=== PATIENT | female | born 1980 | race Hispanic/Latino ===

== ENCOUNTER 2017-04-10 13:38 | Inpatient (IN) | payer SELFPAY ==
[2017-04-10] MEDS ORDERED: SODIUM CHLORIDE 0.9% 1000ML 1,000 ML IVS ONE (13:50)
[2017-04-10] MEDS ORDERED: ONDANSETRON INJ 4 MG/2 ML VIAL IV ONE (13:55)
[2017-04-10] MEDS ORDERED: PANTOPRAZOLE SODIUM IV 40 MG VIAL IV ONE (13:56)
[2017-04-10] MEDS ORDERED: SODIUM CHLORIDE 0.9% 10 ML VIAL ONE (13:58)
[2017-04-10] MEDS ORDERED: SUCRALFATE 1 GM/10 ML 1 GM UD PO ONE (14:42)
[2017-04-10] MEDS ORDERED: ALUMINUM & MAGNESIUM HYDROXIDE 30 ML UD PO ONE (14:42)
--- NOTE | 2017-04-10 14:55 | RAD ---
EXAM DESCRIPTION: Abdomen Series CLINICAL HISTORY: ams, abd pain COMPARISON: None. FINDINGS: AP supine and upright views of the abdomen show a nonspecific, nonobstructive bowel gas pattern with no evidence for free intraperitoneal air. No air-filled dilated loops of small bowel are seen. No significant air-fluid levels are identified. No obvious organomegaly is seen. No abnormal calcifications are seen in the expected location of the renal collecting systems. Single view of the chest shows cardiac silhouette and pulmonary vasculature to be within normal limits. Lungs are normally aerated and clear. Sclerotic changes on the more iliac side of the SI joints seen bilaterally that could represent sacroiliitis. IMPRESSION: Nonspecific abdominal series Electronically signed by: Owen Adames MD 04/10/2017 2:54 PM [employer]ING MACHINE [employer]
--- NOTE | 2017-04-10 16:30 | CT ---
EXAM DESCRIPTION: Abdomen/Pelvis w/Contrast CLINICAL HISTORY: upper abd pain, nv 5 days COMPARISON: None Available TECHNIQUE: CT of the abdomen and Pelvis was performed without IV contrast. This exam was performed according to our departmental dose-optimization program, which includes automated exposure control, adjustment of the mA and/or kV according to patient size and/or use of iterative reconstruction technique. FINDINGS: There is a 3 cm for a calcified gallstone in the gallbladder neck with subtle pericholecystic collection, fluid or wall thickening. The gallbladder is dilated, measuring just over 4 cm diameter. No intra or extrahepatic biliary duct dilation is seen. There is no evidence of pancreatitis. A round 1.9 cm predominantly low density lesion is noted in the body of the pancreas and likely contains a tiny calcification. The spleen, adrenals and kidneys are unremarkable. No dilated small bowel loops. No adenopathy, ascites or pneumoperitoneum. No bladder wall thickening. The uterus and ovaries are unremarkable for patient's age. No colonic wall thickening or pericolonic inflammation. Colonic diverticulosis is noted. The appendix is normal. No lung base abnormality. No acute bone lesion. IMPRESSION: Cholelithiasis and cholecystitis without biliary duct dilation or pancreatitis. Surgical consultation is recommended. 1.9 cm low-density lesion in the pancreatic body which may contain a tiny calcification. No definite enhancement is seen, but this is a nonspecific finding. If the patient has history of prior pancreatitis, pancreatic pseudocyst should be considered. Given patient's age, neoplasm is considered less likely but not completely excluded. Pancreatic protocol CT with pre and multiphase postcontrast images may be helpful for further evaluation. Findings and recommendations were reported by telephone to Dr. Mejia by me at the time of this dictation. Electronically signed by: Don Gracia MD 04/10/2017 4:29 PM [employer]
[2017-04-10] MEDS ORDERED: cefOXitin SODIUM 2 GM in SODIUM CHL 0.9% 50ML MIN-BAG+ 50 ML IVPB ONE (16:48)
[2017-04-10] MEDS ORDERED: MORPHINE SULFATE INJ 10 MG/ML VIAL IV ONE (16:52)
--- NOTE | 2017-04-10 16:55 | ED.PDOC ---
History of Present Illness - General Chief Complaint: Abdominal Pain Stated Complaint: EPIGASTRIC PAIN AND WEAKNESS Time Seen by Provider: 04/10/17 13:44 Source: patient Exam Limitations: no limitations - History of Present Illness Initial Comments: the patient is a 36-year-old female presenting to the emergency room secondary to getting weak and almost passing out when she went to the clinic this morning. She had gone to the clinic for reevaluation of her recurring abdominal pain with associated nausea and vomiting. The patient was seen for 5 days ago at an outside clinic and had labs done. She does not know the results of those labs. The patient has not thrown up any blood. No diarrhea or constipation. No fever. She has not been wanting to eat or drink. She has diffuse upper abdominal discomfort. She thinks that she has had long-standing reflux issues. She has taken omeprazole intermittently. The patient was mildly disoriented upon arrival here however this was after she almost passed out the pain. The patient is feeling much better after a liter of IV fluids. Abdominal pain and nausea still coming in waves. Timing/Duration: 1 week Severity: moderate Improving Factors: nothing Worsening Factors: eating Associated Symptoms: loss of appetite, malaise, nausea/vomiting, weakness Allergies/Adverse Reactions: Allergies NO KNOWN ALLERGY Allergy (Verified 04/10/17 13:58) Review of Systems - Review of Systems Constitutional: States: diaphoresis, malaise, weakness EENTM: States: no symptoms reported Respiratory: States: no symptoms reported Cardiology: States: no symptoms reported Gastrointestinal/Abdominal: States: abdominal pain, nausea, vomiting. Denies: constipation, diarrhea Genitourinary: States: no symptoms reported Musculoskeletal: States: no symptoms reported Skin: States: no symptoms reported Neurological: States: no symptoms reported Endocrine: States: no symptoms reported All other Systems: No Change from Baseline Past Medical History (General) - Patient Medical History Hx Diabetes: No Surgical History: no surgical history - Vaccination History Immunizations Up to Date: No - Social History Hx Tobacco Use: No Feels Threatened In Home Enviroment: No Feels Threatened In a Relationship: No - Female History Patient is a Female of Child Bearing Age (10 -59 yrs old): No - Triage Comment ED Triage Comment: PT PORTRAYS THAT SHE IS UNABLE TO RESPOND BUT WHEN PROMPTED PT IS ABLE TO ANSWER ALL QUESTIONS AND IS AWAKE AT THIS TIME WITH NO SIGNS OF DISTRESS OR DISCOMFORT Family Medical History - Family History Mother Family History: No Known Physical Exam - Physical Exam General Appearance: Alert, Comfortable, No apparent distress Eye Exam: bilateral normal Ears, Nose, Throat: hearing grossly normal, normal ENT inspection, normal pharynx Neck: full range of motion, supple Respiratory: lungs clear, normal breath sounds, no respiratory distress, no accessory muscle use Cardiovascular/Chest: normal peripheral pulses, regular rate, rhythm, no edema Peripheral Pulses: radial,right: 2+, radial,left: 2+, dorsalis pedis,right: 2+, dorsalis pedis,left: 2+ Gastrointestinal/Abdominal: other - epigastric to right upper quadrant discomfort palpation. No definite palpable mass but patient does have some guarding. 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, no motor/sensory deficits, oriented x 3, other - nitially drowsy but better after she rests and received some IV fluids Skin Exam: normal color Comments: Vital Signs - 24 hr 04/10/17 04/10/17 04/10/17 13:50 14:46 15:01 Temperature 98.9 F Pulse Rate [ 75 64 85 Right Brachial] Respiratory 16 16 16 Rate Blood Pressure 138/84 156/66 156/66 [Right Arm] O2 Sat by Pulse 100 100 98 Oximetry 04/10/17 16:19 Temperature Pulse Rate [ 76 Right Brachial] Respiratory 15 Rate Blood Pressure 154/86 [Right Arm] O2 Sat by Pulse 100 Oximetry Progress - Progress Progress: 04/10/17 16:55 the patient is a 36-year-old female presenting to the emergency room with what appears to be cholelithiasis with associated acute cholecystitis, based upon CT scan. laboratory work is reassuring otherwise at this point. The patient is being placed on cefoxitin for now. She'll be made nothing by mouth. She is receiving IV fluids for mild to moderate dehydration. She will receive anti-medics and pain medications as necessary. The patient will be admitted for further management. - Results/Orders Results/Orders: Vital Signs - 8 hr 04/10/17 04/10/17 04/10/17 13:50 14:46 15:01 Temperature 98.9 F Pulse Rate [ 75 64 85 Right Brachial] Respiratory 16 16 16 Rate Blood Pressure 138/84 156/66 156/66 [Right Arm] O2 Sat by Pulse 100 100 98 Oximetry 04/10/17 16:19 Temperature Pulse Rate [ 76 Right Brachial] Respiratory 15 Rate Blood Pressure 154/86 [Right Arm] O2 Sat by Pulse 100 Oximetry 04/10/17 13:44 Telemetry .CONTINUOUS 04/10/17 13:45 EKG STAT 04/10/17 14:14 BLOOD CULTURE Stat 04/10/17 15:45 Hold Metformin x 48Hrs [id number] 04/10/17 16:48 cefOXitin SODIUM [Mefoxin] 2 gm Sodium Chl 0.9% 50Ml Min-Bag+ [NS 50ml MINI- BAG+] 50 ml IVPB ONCE 04/11/17 13:45 EKG STAT Laboratory Results - last 24 hr 04/10/17 04/10/17 04/10/17 13:45 13:54 14:14 WBC RBC Hgb Hct MCV MCH MCHC RDW Plt Count MPV Absolute Neuts (auto) Absolute Lymphs (auto) Absolute Monos (auto) Absolute Eos (auto) Absolute Basos (auto) Neutrophils % Lymphocytes % Monocytes % Eosinophils % Basophils % Sodium 134 L Potassium 3.5 L Chloride 102 Carbon Dioxide 22 Anion Gap 13.5 BUN 7 Creatinine 0.52 L BUN/Creatinine Ratio 13.5 POC Glucose 102 Random Glucose 102 Serum Osmolality 266.4 L Lactic Acid Calcium 9.7 Magnesium 1.7 L Total Bilirubin 0.8 AST 18 ALT 23 Alkaline Phosphatase 89 Creatine Kinase 44 CK-MB (CK-2) 0.6 CK-MB (CK-2) % Not Reportable Troponin I < 0.02 B-Natriuretic Peptide 9.1 Serum Total Protein 8.6 H Albumin 4.2 Globulin 4.4 H Albumin/Globulin Ratio 1.0 L Amylase 88 Lipase 46 TSH 2.11 Serum HCG, Qual Urine Color Urine Appearance Urine pH Ur Specific Kamiah Urine Protein Urine Glucose (UA) Urine Ketones Urine Blood Urine Nitrite Urine Bilirubin Urine Urobilinogen Ur Leukocyte Esterase Urine RBC Urine WBC Ur Epithelial Cells Urine Bacteria Urine Opiates Screen Negative Urine Barbiturates Negative Ur Phencyclidine Scrn Negative U Amphetamin/Meth Scrn Negative U Benzodiazepines Scrn Negative U Cocaine Metab Screen Negative U Cannabinoids Screen Negative 04/10/17 04/10/17 04/10/17 14:14 14:14 14:14 WBC 9.3 RBC 5.00 Hgb 14.5 Hct 42.0 MCV 84.0 MCH 29.0 MCHC 34.6 RDW 13.2 Plt Count 196 MPV 10.8 H Absolute Neuts (auto) 6.80 Absolute Lymphs (auto) 1.60 Absolute Monos (auto) 0.70 Absolute Eos (auto) 0.10 Absolute Basos (auto) 0.10 Neutrophils % 72.8 Lymphocytes % 17.7 L Monocytes % 7.9 Eosinophils % 0.6 L Basophils % 1.0 Sodium Potassium Chloride Carbon Dioxide Anion Gap BUN Creatinine BUN/Creatinine Ratio POC Glucose Random Glucose Serum Osmolality Lactic Acid 1.3 Calcium Magnesium Total Bilirubin AST ALT Alkaline Phosphatase Creatine Kinase CK-MB (CK-2) CK-MB (CK-2) % Troponin I B-Natriuretic Peptide Serum Total Protein Albumin Globulin Albumin/Globulin Ratio Amylase Lipase TSH Serum HCG, Qual Negative Urine Color Urine Appearance Urine pH Ur Specific Kam[place] Urine Protein Urine Glucose (UA) Urine Ketones Urine Blood Urine Nitrite Urine Bilirubin Urine Urobilinogen Ur Leukocyte Esterase Urine RBC Urine WBC Ur Epithelial Cells Urine Bacteria Urine Opiates Screen Urine Barbiturates Ur Phencyclidine Scrn U Amphetamin/Meth Scrn U Benzodiazepines Scrn U Cocaine Metab Screen U Cannabinoids Screen 04/10/17 15:00 WBC RBC Hgb Hct MCV MCH MCHC RDW Plt Count MPV Absolute Neuts (auto) Absolute Lymphs (auto) Absolute Monos (auto) Absolute Eos (auto) Absolute Basos (auto) Neutrophils % Lymphocytes % Monocytes % Eosinophils % Basophils % Sodium Potassium Chloride Carbon Dioxide Anion Gap BUN Creatinine BUN/Creatinine Ratio POC Glucose Random Glucose Serum Osmolality Lactic Acid Calcium Magnesium Total Bilirubin AST ALT Alkaline Phosphatase Creatine Kinase CK-MB (CK-2) CK-MB (CK-2) % Troponin I B-Natriuretic Peptide Serum Total Protein Albumin Globulin Albumin/Globulin Ratio Amylase Lipase TSH Serum HCG, Qual Urine Color Yellow Urine Appearance Clear Urine pH 8.0 H Ur Specific Kamiah 1.015 Urine Protein Negative Urine Glucose (UA) Negative Urine Ketones 15 H Urine Blood Large H Urine Nitrite Negative Urine Bilirubin Negative Urine Urobilinogen 0.2 Ur Leukocyte Esterase Negative Urine RBC Tntc H Urine WBC 0-1 Ur Epithelial Cells 3-5 Urine Bacteria 1+ Urine Opiates Screen Urine Barbiturates Ur Phencyclidine Scrn U Amphetamin/Meth Scrn U Benzodiazepines Scrn U Cocaine Metab Screen U Cannabinoids Screen CT scan of abdomen and pelvis shows acute cholecystitis with a 3 cm gallbladder stone at the gallbladder outlet. There is also a 1.9 cm pancreatic lesion with a central calcification. This does not appear acute. Departure - Departure Clinical Impression: Acute calculous cholecystitis Disposition: Admit Patient Decision To Admit - Decistion To Admit Decision to Admit Reason: Medical Nature Decision to Admit Date: 04/10/17 Decision to Admit Time: 16:58
[2017-04-10] MEDS ORDERED: cefOXitin SODIUM 2 GM INJ IVPB ONE (16:56)
[2017-04-10] MEDS ORDERED: SODIUM CHL 0.9% 50ML MIN-BAG+ 50 ML IVPB ONE (16:57)
--- NOTE | 2017-04-10 17:02 | HP ---
CHIEF COMPLAINT: Abdominal pain. HISTORY OF PRESENT ILLNESS: The patient is a 36 year-old female who was seen in the Emergency Room for a 1 week history of right upper quadrant abdominal pain associated with eating fatty food especially. There is no history of hepatitis or jaundice. There has been nausea and vomiting but no fever or chills. The patient was seen in some clinic 5 days ago. She is uncertain of the results of that testing. The patient has basically been able to hold down fluids and so became weak, and presented today. PAST MEDICAL HISTORY: Negative for surgical or hospitalizations. PAST SURGICAL HISTORY: Negative for surgical or hospitalizations. CURRENT MEDICATIONS: No medications at time of admission. ALLERGIES: NO KNOWN DRUG ALLERGIES. FAMILY HISTORY: Positive for diabetes. No history of anesthesia complications. SOCIAL HISTORY: The patient is . She is a housewife. She does not use tobacco or alcohol. REVIEW OF SYSTEMS: There has been no weight loss. As stated, no history of hepatitis or jaundice. Denies urinary tract symptoms, shortness of breath, chest pain or productive cough. PHYSICAL EXAMINATION: VITAL SIGNS: She is currently afebrile but her blood pressure is elevated at approximately 160/110, pulse rate is in the 60s, respiratory rate 18. GENERAL: The patient is sedated and in mild distress. HEENT: Sclera are nonicteric. Mucous membranes are moist. NECK: Without adenopathy. BACK: Without CVA tenderness. CHEST: She has equal breath sounds bilaterally. CARDIOVASCULAR: Regular rate and rhythm. ABDOMEN: Soft. There is tenderness in the right upper quadrant without discrete mass or organomegaly. There is some mild guarding. PELVIC AND RECTAL: Examinations are deferred. EXTREMITIES: Without clubbing, cyanosis or edema. LABORATORY: Today, white count 9.3 with 72% neutrophils, hemoglobin 14.5, 196, 000 platelets. Chemistries reveal normal liver function test. Normal amylase and lipase. Potassium was mildly low at 3.5, creatinine 0.52. Urinalysis revealed too numerous to count red cells and 1+ urine bacteria, large urine blood, urine ketones, specific gravity of 1.015. Urine culture is pending. RADIOLOGY: CT scan of the abdomen reveals a dilated gallbladder with a single stone in the neck of the gallbladder with some mild thickening of the wall and pericholecystic fluid. ASSESSMENT: 1. Cholelithiasis with biliary colic. No real sign of acute cholecystitis. 2. Mild dehydration with hypokalemia. PLAN: Continued IV hydration with repletion of her potassium. Recheck lab in the morning. If her symptoms have not resolved, will likely offer a laparoscopic cholecystectomy prior to discharge. #[id number] [facility]
[2017-04-10] MEDS ORDERED: MORPHINE SULFATE INJ 10 MG/ML VIAL IV PRN (17:34)
[2017-04-10] MEDS ORDERED: SODIUM CHLORIDE 0.9% (FLUSH) 10 ML SYG IV PRN (17:34)
[2017-04-10] MEDS ORDERED: IV SET AND CAP CHANGE INJ INJ SCH (18:00)
[2017-04-10] MEDS: KCL 20 MEQ/NS 1,000 ML IVS PRN (19:25)
[2017-04-10] MEDS: fentaNYL CITRATE INJ 50 MCG/ML AMP IV PRN (22:43)
[2017-04-11] MEDS: fentaNYL CITRATE INJ 50 MCG/ML AMP IV PRN ×4 (00:47→08:24)
[2017-04-11] MEDS ORDERED: fentaNYL CITRATE INJ 50 MCG/ML AMP IV ONE (02:08)
[2017-04-11] MEDS ORDERED: ONDANSETRON INJ 4 MG/2 ML VIAL IV ONE (02:09)
[2017-04-11] MEDS: KCL 20 MEQ/NS 1,000 ML IVS PRN (03:21)
[2017-04-11] MEDS ORDERED: MIDAZOLAM INJ 2 MG/2 ML VIAL ONE (09:46)
[2017-04-11] MEDS ORDERED: ROCURONIUM BROMIDE 10 MG/ML VIAL ONE ×2 (09:46→12:12)
[2017-04-11] MEDS ORDERED: HYDROmorphone HCL INJ 2 MG/ML VIAL ONE (09:46)
[2017-04-11] MEDS ORDERED: HEPARIN SODIUM (PORCINE) 10,000 UNITS/ML VIAL ONE (09:47)
[2017-04-11] MEDS ORDERED: BUPIVACAINE 0.25% W/EPI 50 ML VIAL INJ ONE (09:47)
[2017-04-11] MEDS ORDERED: ELECTROLYTE-A 1,000 ML IVS ONE ×2 (10:11→11:13)
[2017-04-11] MEDS ORDERED: ceFAZolin SODIUM 1 GM VIAL INJ ONE (10:15)
[2017-04-11] MEDS ORDERED: ceFAZolin SODIUM 1 GM VIAL IVPB ONE (12:00)
[2017-04-11] MEDS ORDERED: METOCLOPRAMIDE HCL INJ 10 MG/2 ML VIAL IV ONE (12:00)
[2017-04-11] MEDS ORDERED: raNITIdine HCL INJ 25 MG/ML VIAL IV ONE (12:00)
[2017-04-11] MEDS ORDERED: LIDOCAINE 1% 10 ML VIAL INJ ONE (12:00)
[2017-04-11] MEDS ORDERED: SODIUM CHLORIDE 0.9% 50 ML VIAL INJ ONE (12:00)
[2017-04-11] MEDS ORDERED: DEXAMETHASONE INJ 10 MG/ML VIAL IV ONE (12:00)
[2017-04-11] MEDS ORDERED: KETOROLAC TROMETHAMINE INJ 30 MG/ML VIAL IV ONE (12:00)
[2017-04-11] MEDS ORDERED: PROPOFOL 200 MG/20 ML VIAL IV ONE (12:00)
[2017-04-11] MEDS ORDERED: SUGAMMADEX SODIUM 200 MG/2 ML VIAL IV ONE (12:30)
[2017-04-11] MEDS ORDERED: ONDANSETRON INJ 4 MG/2 ML VIAL IV PRN (12:43)
[2017-04-11] MEDS ORDERED: HYDROcodone 5MG/APAP 325MG 1 EA TAB PO PRN (12:43)
--- NOTE | 2017-04-11 13:33 | OP ---
DATE OF PROCEDURE: 04/11/17 PREOPERATIVE DIAGNOSIS: 1. Symptomatic cholelithiasis. 2. Biliary colic. POSTOPERATIVE DIAGNOSIS: 1. Symptomatic cholelithiasis. 2. Biliary colic. 3. Subacute cholecystitis. PROCEDURE: 1. Laparoscopic cholecystectomy with intraoperative cholangiography using fluoroscopy. SURGEON: Alan Garcia MD. NUT PACKER: None. ANESTHESIA: Local infiltration of 0.25% Marcaine with epinephrine and general endotracheal anesthesia. INDICATION: The patient is a 36-year-old female who has had several years of intermittent right upper quadrant abdominal pain that her associated with greasy or spicy foods. She has had one week of severe pain that has not resolved associated with nausea and vomiting. She presented to the Emergency Room last night and was admitted for pain control. Her pain did not improve. She continued to have normal liver functions and white count. The risks, benefits and alternatives of laparoscopic cholecystectomy with intraoperative cholangiography were discussed with the patient in the presence of her this morning. Their questions were answered and they agreed to the procedure. FINDINGS: The patient had a very distended, edematous gallbladder. No other pathology was identified. Intraoperative cholangiography revealed free flow into the duodenum with no filling defects or strictures noted. DESCRIPTION OF PROCEDURE: After adequate general endotracheal anesthesia was obtained, the patient was prepped and draped in the usual sterile manner. Surgical time-out was taken. The infraumbilical area was infiltrated with local anesthesia. A curvilinear incision was fashioned and carried down through the skin and subcutaneous tissue to the midline fascia using blunt dissection. Traction sutures were placed on either side of the midline. A small incision was made in the midline fascia and the peritoneum was opened bluntly. Ivonne trocar was introduced under direct vision into the abdominal cavity and fixed in place with the 20 mL balloon. CO2 was then insufflated until a pressure of 12 mmHg was reached and the abdomen was tympanitic in all four quadrants. When this was done, the laparoscope was introduced. The abdomen was inspected with the previously noted findings. The patient was then placed in reverse Trendelenburg position, turned to the left side. The upper abdominal ports were placed under direct vision. At this point, needle was used and approximately 20 to 25 mL of thick bile was aspirated allowing grabbing of the gallbladder. The gallbladder was then retracted superiorly and laterally. The neck of the gallbladder was retracted laterally. At this time, all the adhesions to the gallbladder which were from the omentum were dissected free. The triangle of Calot was then explored with the cystic duct and cystic artery identified and isolated. The cystic duct was hemoclipped once proximally. The cystic artery was hemoclipped twice proximally and once distally. Two other structures were clipped proximally. A small incision was made in the cystic duct. The cholangiogram catheter was introduced through a separate stab wound in the right upper quadrant, introduced into the cystic duct and clipped in place. Cholangiograms were then taken using fluoroscopy which revealed free flow into the duodenum with no filling defects or strictures noted. When this was done, the cystic duct catheter was removed. The cystic duct was hemoclipped four times distally and divided between the hemoclips. The cystic artery was divided. The gallbladder was then dissected free from the gallbladder bed of the liver with some difficulty. There was some leakage of bile which was aspirated. Several small stones were dropped and these were picked up using the clot grasping device. The gallbladder was placed in an EndoCatch bag and removed from the infraumbilical port site in the usual manner under direct vision. When this was done, the subhepatic space and subphrenic space were irrigated copiously with saline. There was some oozing from the gallbladder bed of the liver that was generally controlled with electrocautery. Due to the edema in this area, a 15 [place] JOSE drain was placed through the lateral port site and placed in the subhepatic space. At this time , the betty hepatis was inspected and there was good hemostasis and no bile leak noted. At this time, the subhepatic space and subphrenic space on the right were irrigated copiously with saline. The effluent was noted to be clear. There was adequate hemostasis noted. At this time, the upper abdominal ports were removed under direct vision and adequate hemostasis was noted. At this point, the CO2, the laparoscope and the infraumbilical port were removed. The infraumbilical port site fascia was approximated with a single figure-of- eight suture of 0 Vicryl. Subcutaneous tissue was irrigated with saline. Skin edges were approximated with 4-0 Vicryl subcuticular sutures, benzoin and Steri-Strips. Sterile dressings were applied. The patient was awakened and taken to the Recovery Room in good and stable condition. Estimated blood loss was approximately 100 mL. All sponge, needle and instrument counts were correct. #[id number] [facility]
[2017-04-11] MEDS: KCL 20MEQ/D5 1/2NS 1,000 ML IVS PRN ×2 (13:58→22:59)
[2017-04-11] MEDS ORDERED: ceFAZolin SODIUM 2 GM in SODIUM CHLORIDE 0.9% 100ML 100 ML IVPB SCH (15:00)
[2017-04-11] MEDS ORDERED: ceFAZolin SODIUM 2 GRAMS PREMI 50 ML IVPB ONE ×3 (16:02→23:45)
[2017-04-11] MEDS: ceFAZolin SODIUM 2 GRAMS PREMI 2 GM in PREMIX BAG 1 BAG IVPB SCH ×2 (16:04→23:28)
[2017-04-12] MEDS: MORPHINE SULFATE INJ 10 MG/ML VIAL IV PRN ×3 (05:19→08:30)
[2017-04-12] MEDS: ceFAZolin SODIUM 2 GRAMS PREMI 2 GM in PREMIX BAG 1 BAG IVPB SCH (06:24)
[2017-04-12 11:34] VITALS: BP 139/84; TEMP 96.6; O2SAT 98
--- NOTE | 2017-04-12 13:37 | DS ---
FINAL DIAGNOSIS: 1. Cholelithiasis. 2. Acute and chronic cholecystitis. SURGICAL PROCEDURE: On 04/11/17, laparoscopic cholecystectomy with intraoperative cholangiography. HISTORY OF PRESENT ILLNESS: The patient is a 36 year-old female who was seen in the Emergency Room for a 1 week history of right upper quadrant abdominal pain associated with eating fatty food especially. There is no history of hepatitis or jaundice. There has been nausea and vomiting but no fever or chills. The patient was seen in some clinic 5 days ago. She is uncertain of the results of that testing. The patient has basically been able to hold down fluids and so became weak, and presented today. LABORATORY: On the date of discharge, the patient did have a white count of 11, 600 with 77% neutrophils. Hemoglobin 11.6, platelet count 154,000. Chemistries revealed a total bilirubin of 0.5 with mildly elevated AST, ALT and alkaline phosphatase. Creatinine was less than 0.40. Potassium 3.6. Pathology report is pending. HOSPITAL COURSE: The patient was admitted from the Emergency Room with intractable pain and cholelithiasis. She was given pain medication overnight. Her pain did not improve despite the fact that she continued to have a normal white count and normal liver functions. The risks, benefits and alternatives to cholecystectomy were discussed with the patient and her . Their questions were answered and they wished to proceed with cholecystitis, which was done yesterday. She has tolerated clear liquids with mild nausea and mild pain. She is afebrile, normotensive. Abdomen is soft and mildly tender. Her JOSE drainage has been minima and it was removed this morning. At this time, she is discharged home. CONDITION ON DISCHARGE: Good. DISPOSITION: The patient is to followup in my office in one week. She is discharged on a low fat diet and told to push fluids. She was told she can ambulate, but do no lifting or exercise. She was told she can shower tomorrow, but not tub bath. She was given phone numbers for my office and for the hospital and instructed if she has problems with shortness of breath, chest pain , abdominal pain, nausea, vomiting, fever or wound drainage, she is to call or if she has any other questions. #[id number] [facility]
== END 2017-04-12 13:00 | disposition home or self-care (01) | DRG 419 ==
LOC: ER 13:38 → MS 17:00
PROVIDERS: ADMIT Surgery; ATTEND Surgery
PROC: BF13YZZ Fluoroscopy of Gallbladder and Bile Ducts using Other Contrast (ICD-10-PCS; 2017-04-11)
PROC: 0FT44ZZ Resection of Gallbladder, Percutaneous Endoscopic Approach (ICD-10-PCS; principal; 2017-04-11 10:30)
DX: K80.12 Calculus of gallbladder with acute and chronic cholecystitis without obstruction (principal); E86.0 Dehydration; E87.6 Hypokalemia